=== PATIENT | female | born 1995 | race African-American/Black ===

== ENCOUNTER 2017-02-05 08:32 | Emergency (ER) | payer MEDICAID ==
[2017-02-05 08:37] VITALS: BP 129/64
[2017-02-05] MEDS ORDERED: ACETAMINOPHEN 325 MG TABLET PO ONE (10:49)
[2017-02-05] MEDS ORDERED: DICLOXACILLIN SODIUM 250 MG CAPSULE PO ONE (10:49)
--- NOTE | 2017-02-05 10:51 | ER Document Report ---
HPI - HPI Pain Level: 4 Context: Patient is a 21-year-old female who presents emergency department complaining of swelling, tenderness under her left breast for the past 2-3 days. Patient states that she is breast-feeding her 1-month-old but over the past couple of days has been having less milk output from that breast with tenderness. States that she has not taken anything for the pain and has not seen her [employer]. Patient states that she is visiting here from [place] for the holidays and will be going home until after Андрей. Otherwise she denies any fevers, lethargy, purulent drainage, redness. - CONSTITUTIONAL Constitutional: DENIES: Fever, Chills Past Medical History - Social History Smoking Status: Never Smoker Frequency of alcohol use: None Drug Abuse: None Family History: Reviewed & Not Pertinent Patient has suicidal ideation: No Patient has homicidal ideation: No Renal/ Medical History: Denies: Hx Peritoneal Dialysis Past Surgical History: Comment Only: Hx Orthopedic Surgery - right knee Vertical Provider Document - CONSTITUTIONAL Agree With Documented VS: Yes Notes: PHYSICAL EXAM GENERAL: Alert, interacts well. LUNGS: Clear to auscultation bilaterally, no wheezes, rales, or rhonchi. No respiratory distress. HEART: Regular rate and rhythm. No murmurs, gallops, or rubs. NEUROLOGICAL: Alert and oriented x4. Normal speech. PSYCH: Normal affect, normal mood. SKIN: Warm, dry, normal turgor. At approximately 4:00 on the patient's left breast is tenderness without overlying erythema and mild induration without fluctuance. No palpable masses on breast exam bilaterally - INFECTION CONTROL TRAVEL OUTSIDE OF THE [place] IN LAST 30 DAYS: No - RESPIRATORY O2 Sat by Pulse Oximetry: 96 Course - Re-evaluation Re-evalutation: 02/05/17 10:51 Patient is a 21-year-old female presents with mastitis of the left breast. Patient educated on increasing breast-feeding and pumping as well as utilizing warm compresses and will be discharged on a antibiotic. Instructed her to [facility] the [facility] for check in a couple of days if she is not able to follow-up with them discussed with her that she is able to return to the emergency department. Discussed strict return precautions and otherwise patient is agreeable for discharge. - Vital Signs Vital signs: Temp Pulse Resp BP Pulse Ox 99.1 F 113 H 14 129/64 H 96 02/05/17 08:36 02/05/17 08:36 02/05/17 08:36 02/05/17 08:36 02/05/17 08:36 Discharge - Discharge Clinical Impression: Mastitis Condition: Good Disposition: HOME, SELF-CARE Instructions: Mastitis ([facility]) Additional Instructions: Please return to the emergency department with worsening signs of redness, tenderness, any worsening fevers of 103.5 not responding to Tylenol. We encourage frequent breast-feeding and pumping to help stimulate the blocked duct. Please utilize warm compresses as well to help stimulate flow from the area. Prescriptions: Dicloxacillin Sodium 500 mg PO QID 10 Days #40 capsule Referrals: [facility] [Provider Group] - Follow up tomorrow
== END 2017-02-05 11:30 | disposition home or self-care (01) ==
LOC: ER 08:32
DX: O91.22 Nonpurulent mastitis associated with the puerperium (principal)
CPT/HCPCS: 99283; J3490

== ENCOUNTER 2017-03-24 20:57 | Emergency (ER) | payer OTHER ==
[2017-03-24 21:08] VITALS: BP 124/78
--- NOTE | 2017-03-24 21:39 | ER Document Report ---
HPI - HPI Patient complains to provider of: stomach pain, diarrhea Onset: This afternoon Onset/Duration: Sudden Quality of pain: No pain Pain Level: Denies Context: Patient presents emergency department with complaints of stomach pain and diarrhea. Patient reports she will have a little bit of abdominal cramping after she eats and then have diarrhea. She reports she had diarrhea 3 times today. Last diarrhea at 1500 today. Reports she doesn't have any abdominal pain now. Patient reports she is eating drinking as normal no problems. She is here because she is worried her son may get sick and he is 2 months old. She reports her had diarrhea for the past 2 days. Associated Symptoms: None Exacerbated by: Denies Relieved by: Denies Similar symptoms previously: No Recently seen / treated by doctor: No - CONSTITUTIONAL Constitutional: DENIES: Fever, Chills - EENT EENT: DENIES: Sore Throat, Ear Pain, Eye problems - NEURO Neurology: DENIES: Headache, Weakness, Vision blurred, Dizzinesss / Vertigo - CARDIOVASCULAR Cardiovascular: DENIES: Chest pain - RESPIRATORY Respiratory: DENIES: Trouble Breathing, Coughing - GASTROINTESTINAL Gastrointestinal: REPORTS: Abdominal Pain - generalized. DENIES: Black / Bloody Stools - URINARY Urinary: DENIES: Dysuria, Urgency, Frequency - MUSCULOSKELETAL Musculoskeletal: DENIES: Extremity pain Past Medical History - General Information source: Patient Last Menstrual Period: 03/10/17 - Social History Smoking Status: Unknown if Ever Smoked Cigarette use (# per day): No Frequency of alcohol use: None Drug Abuse: None Occupation: homemaker Lives with: Family Family History: Reviewed & Not Pertinent Patient has suicidal ideation: No Patient has homicidal ideation: No - Medical History Medical History: Negative Renal/ Medical History: Denies: Hx Peritoneal Dialysis Past Surgical History: Comment Only: Hx Orthopedic Surgery - right knee Vertical Provider Document - CONSTITUTIONAL Agree With Documented VS: Yes Exam Limitations: No Limitations General Appearance: WD/WN, No Apparent Distress - INFECTION CONTROL TRAVEL OUTSIDE OF THE [place] IN LAST 30 DAYS: No - HEENT HEENT: Atraumatic, Normocephalic - NECK Neck: Supple - RESPIRATORY Respiratory: Breath Sounds Normal, No Respiratory Distress O2 Sat by Pulse Oximetry: 95 - CARDIOVASCULAR Cardiovascular: Regular Rate - MUSCULOSKELETAL/EXTREMETIES Musculoskeletal/Extremeties: MAGINA, FROM - NEURO Level of Consciousness: Awake, Alert, Appropriate Motor/Sensory: No Motor Deficit - DERM Integumentary: Warm, Dry Course - Vital Signs Vital signs: Temp Pulse Resp BP Pulse Ox 98.0 F 86 18 124/78 95 03/24/17 21:07 03/24/17 21:07 03/24/17 21:07 03/24/17 21:07 03/24/17 21:07 Discharge - Discharge Clinical Impression: Diarrhea Qualifiers: Diarrhea type: unspecified type Qualified Code(s): R19.7 - Diarrhea, unspecified Condition: Stable Disposition: HOME, SELF-CARE Instructions: Diarrhea, Nonspecific ([facility]) Additional Instructions: *You have been evaluated for abdominal pain, DIARRHEA *Good handwashing *Follow up with a primary care provider within one week *Return to ED for worsening condition, changes, needs, concerns Forms: Elevated Blood Pressure
== END 2017-03-24 21:47 | disposition home or self-care (01) ==
LOC: ER 20:57
DX: R10.84 Generalized abdominal pain (principal); R19.7 Diarrhea, unspecified
CPT/HCPCS: 99284